=== PATIENT | female | born 1945 | race Caucasian/White ===

== ENCOUNTER → 2016-04-19 | Outpatient (CLI) | payer OTHER, BC ==
[~2016-04-19] MED LIST: ALTACE10 M1 PO; ALTACE10 MG PO; AMBIEN10 M1 PO; AMBIEN5 MG PO; ASPIR-LOW81 MG PO; CALCIUM + D SO1 EACH PO; CLOBETASOL PROP60 G1 TP; COMPAZINE10 MG PO; CRANBERRY200 MG PO; DAILY VALUE1 EACH PO; Flonase BOTH NARES; KETOCONAZOLE120 ML TP; LIPITOR10 MG PO; LYRICA50 MG PO; MECLIZINE HCL12.5 M1 PO; NEUTRA-PHOS,1 PACKET PO; NEXIUM40 MG PO; NORVASC5 MG PO; Oyst-Cal D, Oscal W/ PO; PANTOPRAZOLE SO40 MG PO; RHINOCORT AQUA8.6 G1 BOTH NARES; Reglan PO; SINGULAIR10 MG PO; TOPROL XL25 MG PO; ValTRex PO; ZOCOR20 MG PO; ZYVOX600 MG PO
== END | disposition home or self-care (01) ==
LOC: RAD 08:25 → NUC 08:25
DX: R06.02 Shortness of breath (principal); J43.9 Emphysema, unspecified
CPT/HCPCS: 71020; 78582; A9540; A9567